=== PATIENT | male | born 1985 | race African-American/Black ===

== ENCOUNTER 2020-03-30 01:44 | Inpatient (IN) | payer OTHER ==
[2020-03-30] MEDS ORDERED: Acetaminophen 500 MG TAB ONE (02:25)
[2020-03-30 02:35] LABS: #Lymphocytes 0.4 thou/uL (1.20-3.40); #Monocytes 0.2 thou/uL (0.11-0.59); %Eosinophils 0.3 % (0.0-10.0); %Lymphocytes 16.9 % (21.0-51.0); %Monocytes 6.3 % (0.0-10.0); %Neutrophils 76.5 % (42.0-75.0); Mean Corpuscular HGB CONC 35.7 g/dL (32.0-36.0); Mean Corpuscular Hemoglobin 29.1 pg (27.0-31.0); Mean Corpuscular Volume 81.4 fL (78.0-98.0); Mean Platelet Volume 7.7 fL (7.4-10.4); Platelet Count 195 thou/uL (130-400); RBC Distribution Width 14.3 % (11.5-14.5); Red Blood Cell (RBC) Count 3.08 mill/uL (4.70-6.10); White Blood Cell (WBC) Count 2.6 thou/uL (4.8-10.8)
[2020-03-30 02:59] LABS: ALT (SGPT) 24 U/L (8-55); AST (SGOT) 29 U/L (5-34); Albumin 3.2 g/dL (3.5-5.0); Alkaline Phosphatase 38 U/L (40-110); Anion Gap 10 mmol/L (10-20); BUN (Urea Nitrogen) 8 mg/dL (8.9-20.6); Bilirubin, Total 0.6 mg/dL (0.2-1.2); Calc. Creatinine Clearance 0 mL/min (70-130); Calcium 8.7 mg/dL (7.8-10.44); Carbon Dioxide 24 mmol/L (22-29); Chloride 104 mmol/L (98-107); Estimated GFR-MDRD Greater than 90; Globulin 4.3 g/dL (2.4-3.5); Glucose 89 mg/dL (70-105); Lipase 28 U/L (8-78); Potassium 3.8 mmol/L (3.5-5.1); Protein, Total 7.5 g/dL (6.0-8.3); Sodium 134 mmol/L (136-145)
[2020-03-30] MEDS ORDERED: Ondansetron PF 4 MG/2 ML Vial IVP PRN ×2 (05:30→13:30)
[2020-03-30] MEDS ORDERED: Ondansetron ODT 4 MG TAB PO PRN ×2 (05:30→13:30)
[2020-03-30] MEDS ORDERED: HYDROcodone/Acetaminophen 5/325 mg Tablet PO PRN ×4 (05:30→13:30)
[2020-03-30] MEDS ORDERED: Acetaminophen 650 MG Suppository PR PRN ×2 (05:30→13:29)
[2020-03-30] MEDS ORDERED: Acetaminophen 325 MG TAB PO PRN ×2 (05:30→13:29)
--- NOTE | 2020-03-30 06:05 | PDOC.HHP ---
Hospitalist HPI - History of Present Illness abdominal pain History of Present Illness: Case of an 34y/o male [facility] inmate who comes to hospital due to abdominal pain. apparently patient was on his usual state of health until 3 months ago when he started with abdominal, general malaise and weakness. patient refers coughing and moving worsens pain. patient also refers anorexia weight loss and fatigue. pain varies in intensity from 2 -7 is epigastric non radiating. patient was evaluated with CT and showed dilated common bile duct despite normal values, also patient presents with leukopenia and anemia, has a family hx of lupus Hospitalist ROS - Review of Systems All other systems reviewed; all pertinent +/- noted in HPI/Subj Hospitalist History - Past Medical History Cardiac: reports: no pertinent history - Past Surgical History Past Surgical History: reports: Hernia Repair - Family History Other Family History: lupus - Social History Smoking Status: Former smoker Alcohol: reports: None Drugs: reports: none - Exam General Appearance: NAD, awake alert Eye: PERRL, anicteric sclera ENT: normocephalic atraumatic, no oropharyngeal lesions, moist mucosa Neck: supple, symmetric, no JVD Heart: RRR, no murmur, no gallops, no rubs Respiratory: CTAB, no rales, no ronchi Gastrointestinal: soft, non-tender, non-distended, normal bowel sounds Extremities: no cyanosis, no clubbing, no edema Skin: normal turgor, no lesions, no rashes Neurological: cranial nerve grossly intact, normal sensation to touch, no weakness, no focal deficits Musculoskeletal: normal tone, normal strength, no muscle wasting Psychiatric: normal affect, normal behavior, A&O x 3 Hospitalist Results - Labs Result Diagrams: 03/30/20 02:28 03/30/20 02:28 Lab results: WBC 2.6 thou/uL (4.8-10.8) L 03/30/20 02:28 Hgb 9.0 g/dL (14.0-18.0) L 03/30/20 02:28 Hct 25.1 % (42.0-52.0) L 03/30/20 02:28 MCV 81.4 fL (78.0-98.0) 03/30/20 02:28 Plt Count 195 thou/uL (130-400) 03/30/20 02:28 Neutrophils % 76.5 % (42.0-75.0) H 03/30/20 02:28 Sodium 134 mmol/L (136-145) L 03/30/20 02:28 Potassium 3.8 mmol/L (3.5-5.1) 03/30/20 02:28 Chloride 104 mmol/L (98-107) 03/30/20 02:28 Carbon Dioxide 24 mmol/L (22-29) 03/30/20 02:28 BUN 8 mg/dL (8.9-20.6) L 03/30/20 02:28 Creatinine 0.90 mg/dL (0.7-1.3) 03/30/20 02:28 Glucose 89 mg/dL (70-105) 03/30/20 02:28 Calcium 8.7 mg/dL (7.8-10.44) 03/30/20 02:28 Total Bilirubin 0.6 mg/dL (0.2-1.2) 03/30/20 02:28 AST 29 U/L (5-34) 03/30/20 02:28 ALT 24 U/L (8-55) 03/30/20 02:28 Alkaline Phosphatase 38 U/L (40-110) L 03/30/20 02:28 Serum Total Protein 7.5 g/dL (6.0-8.3) 03/30/20 02:28 Albumin 3.2 g/dL (3.5-5.0) L 03/30/20 02:28 Lipase 28 U/L (8-78) 03/30/20 02:28 Hospitalist H&P A/P - Problem (1) Dilated bile duct Code(s): K83.8 - OTHER SPECIFIED DISEASES OF BILIARY TRACT Status: Acute (2) Pancytopenia Code(s): D61.818 - OTHER PANCYTOPENIA Status: Acute - Plan Plan: 34 y/o male present with 3 months hx of abdominal pain, weight loss weakeness and malaise with a abd ct showing dilated bile duct with normal bmp including bili and a new onset of leukopenia and anemia - gi consulted - oncology consulted - iv hydration -pain management - iron panel
[2020-03-30 06:21] LABS: Iron 44 ug/dL (65-175); Iron Binding Capacity, Total 155 mcg/dL (261-462)
[2020-03-30] MEDS ORDERED: Famotidine 20 MG TAB PO SCH (09:00)
--- NOTE | 2020-03-30 21:33 | CON ---
DATE OF CONSULTATION: 03/30/2020 REASON FOR CONSULTATION: Dilated common bile duct. HISTORY OF PRESENT ILLNESS: Natalio Hinojosa is a 34-year-old man, who is a long-term retirement inmate. He was sent here from [facility] early this morning for further evaluation. He has a prior history of hernia repair last year as well as remote history of seizure. He takes only Abilify and phenytoin. He has no prior history of gastrointestinal illness. He says his mother of liver disease, but there is no family history of GI malignancy that he knows. He says for about the past 3 months, he has been experiencing unintentional weight loss of about 30 pounds along with fatigue and loss of appetite. He says his bowel habits have not really changed. There is no diarrhea, constipation, melena, or hematochezia. He has been having pain on the right side of the abdomen, really more quite lateral involving the right flank. This is not particularly related to mealtimes. He has felt progressively weak and fatigued. Upon presentation to [facility] last night, labs showed significant anemia with hemoglobin at 7.1. This is evidently new. It is normocytic. He received 2 units RBCs and this morning, hemoglobin is 9.0. He also has some mild leukopenia with WBC 2.6. LFTs and lipase were all normal. CRP normal and FOBT negative. He had ultrasound and then CT imaging, both of which showed nondistended gallbladder, normal appearing liver, common bile duct mildly dilated to [address] scan, it was felt the pancreatic duct was borderline at 3 mm, but though there was no apparent mass in the area, no other acute processes. Hematology has been consulted. Note, he has low iron and low TIBC. He is not currently having any discomfort. In fact, he says if he lies more on his left side, he does not feel any pain at all. REVIEW OF SYSTEMS: Full review of systems including constitutional, head, eyes, ears, nose, throat, GI, , cardiovascular, respiratory, musculoskeletal, neurologic systems is negative except as noted in the HPI. PAST MEDICAL HISTORY: Hernia repair in 2019, seizures, and prior tobacco abuse. ALLERGIES: NO KNOWN DRUG ALLERGIES. OUTPATIENT MEDICATIONS: 1. Abilify. 2. Phenytoin. SOCIAL HISTORY: He is an inmate. Former smoking. No alcohol or drug use. FAMILY HISTORY: Positive for lupus. He says his mother had liver disease. No known family history of GI illness or malignancy. PHYSICAL EXAMINATION: VITAL SIGNS: Temperature 98.7, pulse 86, blood pressure 118/71, and 100% oxygen saturation on room air. GENERAL: A 34-year-old man, lying in bed comfortably, appearing nontoxic, in no acute distress. MENTAL: He is alert and fully oriented. He is able to give a detailed history of his symptoms. SKIN: No jaundice. No rashes were palpable. EYES: No scleral icterus. Extraocular movements intact. ENT: Mucous membranes moist. No oral lesions. LYMPH: No submandibular or supraclavicular lymphadenopathy. THYROID: Nontender to palpation. HEART: Regular rate and rhythm. LUNGS: Clear to auscultation bilaterally. ABDOMEN: Bowel sounds are present. The abdomen is soft and nontender to palpation throughout. He does have some tenderness far laterally in the right upper quadrant as well as some in the right flank. There is no guarding or rebound tenderness. The abdomen is nondistended. EXTREMITIES: No peripheral edema. VESSELS: Radial pulses 2+ bilaterally. NEUROLOGIC: Cranial nerves 2 through 12 intact bilaterally. No focal deficits. LABORATORY STUDIES: Initial hemoglobin was 7.1, after 2 units of RBC transfusion, this is 9.0; MCV 81.4, WBC 2.6, platelets 195. Sodium 134, potassium 3.8, BUN 8, creatinine 0.90. LFTs all normal with total bilirubin 0.6, alkaline phosphatase 38, AST 29, ALT 24, albumin 3.2, lipase 28. CRP 1.0. FOBT negative. Iron low at 44, TIBC low at 155, 28% iron saturation. IMAGING STUDIES: Reviewed the report from outside abdominal ultrasound and CT scan. Abdominal ultrasound showed normal liver, common bile duct 7 mm, poor visualization of the gallbladder. CT of the abdomen and pelvis showed a common bile duct of 7 mm, pancreatic duct of 3 mm, no apparent mass in the area. No lymphadenopathy. Normal appearing liver, spleen, and pancreas otherwise. Cecum and appendix lie within the left lower quadrant. ASSESSMENT AND PLAN: 1. Anemia, normocytic. It is unclear exactly how acute this is, but from outside records, it appears this may be more of an acute anemia. Note, the iron studies are mixed so far, he has responded well to transfusion. Etiology is unknown. We will also obtain ferritin, vitamin B12, and folic acid levels. Trend hemoglobin and hematocrit. In the absence of overt bleeding, do still need to consider occult gastrointestinal bleeding lesion, particularly with the concomitant weight loss over the past few months. 2. Weight loss, unintentional. He has lost about 30 pounds over the past several months along with the anemia, this does raise concern for occult gastrointestinal bleeding lesion. EGD and colonoscopy are certainly warranted. The patient is currently being ruled out for COVID. We will have the patient on clear liquid diet tomorrow, and assuming COVID comes back negative, could potentially proceed with EGD and colonoscopy the following day. 3. Dilated common bile duct. This is quite mild on ultrasound and CT imaging showing a CBD of [address] also suggested pancreatic duct upper limits of normal at 3 mm, though no pancreatic mass. Particularly given the weight loss, I think further imaging is reasonable, so we will go ahead and order MRCP, though I note LFTs and lipase are normal, so this may all be insignificant. 4. Right flank pain. The patient's presentation was billed as epigastric and right upper quadrant pain, but he really denies this. He says it is more way lateral on the right side in the back and he feels that it might be positional. There is nothing else on CT imaging to suggest an etiology for this, could be musculoskeletal. We will follow along, with results of labs, an MRCP imaging, COVID testing, and again plan for EGD and colonoscopy at some point once COVID has come back negative. Job ID: [id number]
[2020-03-30] MEDS: Famotidine 20 MG TAB PO SCH (21:52)
[2020-03-30] MEDS: Aripiprazole 15 MG TAB PO SCH (21:53)
[2020-03-31 07:08] LABS: #Lymphocytes 0.4 thou/uL (1.20-3.40); #Monocytes 0.2 thou/uL (0.11-0.59); #Neutrophils 1.7 thou/uL (1.40-6.50); %Eosinophils 0.5 % (0.0-10.0); %Lymphocytes 16.5 % (21.0-51.0); %Monocytes 9.5 % (0.0-10.0); %Neutrophils 73.5 % (42.0-75.0); Hemoglobin 8.5 g/dL (14.0-18.0); Mean Corpuscular Hemoglobin 28.1 pg (27.0-31.0); Mean Corpuscular Volume 82.5 fL (78.0-98.0); Mean Platelet Volume 7.9 fL (7.4-10.4); Platelet Count 193 thou/uL (130-400); RBC Distribution Width 14.3 % (11.5-14.5); Red Blood Cell (RBC) Count 3.02 mill/uL (4.70-6.10); White Blood Cell (WBC) Count 2.2 thou/uL (4.8-10.8)
[2020-03-31 07:30] LABS: ALT (SGPT) 22 U/L (8-55); AST (SGOT) 25 U/L (5-34); Albumin 2.9 g/dL (3.5-5.0); Alkaline Phosphatase 37 U/L (40-110); Anion Gap 8 mmol/L (10-20); BUN (Urea Nitrogen) 11 mg/dL (8.9-20.6); Bilirubin, Total 0.6 mg/dL (0.2-1.2); Calc. Creatinine Clearance 0 mL/min (70-130); Calcium 8.4 mg/dL (7.8-10.44); Carbon Dioxide 25 mmol/L (22-29); Chloride 103 mmol/L (98-107); Estimated GFR-MDRD Greater than 90; Glucose 125 mg/dL (70-105); Potassium 3.7 mmol/L (3.5-5.1); Protein, Total 6.9 g/dL (6.0-8.3); Sodium 132 mmol/L (136-145)
[2020-03-31 07:54] LABS: Ferritin 909.97 ng/mL (22-322)
[2020-03-31] MEDS: Famotidine 20 MG TAB PO SCH ×4 (08:34→21:50)
[2020-03-31 10:14] VITALS: BMI 19.8
[2020-03-31 12:14] LABS: SARS-CoV-2 MS2 Positive; SARS-CoV-2 N Gene Negative; SARS-CoV-2 S Gene Negative; SARS-CoV-2 orf1ab Negative
[2020-03-31] MEDS ORDERED: Iopamidol-370 76% 500 ML 1 ML ONE (16:35)
--- NOTE | 2020-03-31 17:53 | PDOC.HOSPP ---
- Subjective Encounter Date: 03/31/20 Subjective: Patient reports that he has been losing weight over several months. He reports that since November he has had very poor appetite and food has not tasted the same for him. He also reports during that same timeframe that he has had fairly chronic headaches. He denies any specific abdominal pain. He does eat but reportedly eats less because of the loss of appetite and taste perversion. Says he was initially worried that it was COVID because of the taste change but he has been tested and was negative. - Objective Vital Signs & Weight: Vital Signs (12 hours) Temp Pulse Resp BP Pulse Ox 03/31/20 17:10 98.7 F 85 14 111/73 100 03/31/20 12:00 98.2 F 74 16 125/75 98 03/31/20 08:40 97.7 F 76 16 118/74 96 Weight Admit Weight 154 lb 3.2 oz Weight 154 lb 3.2 oz Result Diagrams: 03/31/20 06:35 03/31/20 06:35 Hospitalist ROS - Medication Medications: Active Medications Generic Name Dose Route Start Last Admin Trade Name Faustino PRN Reason Stop Dose Admin Aripiprazole 15 mg 03/30/20 21:00 03/30/20 21:53 Abilify PO 15 mg HS KAVON Administration Famotidine 20 mg 03/30/20 21:00 03/31/20 10:25 Pepcid PO Not Given BID KAVON Phenytoin Sodium 300 mg 03/30/20 21:00 03/30/20 21:52 Dilantin Er PO 300 mg HS KAVON Administration - Exam General Appearance: NAD, awake alert ENT: normocephalic atraumatic, no oropharyngeal lesions, moist mucosa Heart: RRR, no murmur, no gallops, no rubs, normal peripheral pulses Respiratory: CTAB, no wheezes, no rales, no ronchi, normal chest expansion, no tachypnea, normal percussion Gastrointestinal: soft, non-tender, non-distended, normal bowel sounds, no palpable masses, no hepatomegaly, no splenomegaly, no bruit Extremities: no cyanosis, no clubbing, no edema Skin: normal turgor Neurological: no focal deficits Musculoskeletal: normal tone Hosp A/P (1) Abdominal pain Code(s): R10.9 - UNSPECIFIED ABDOMINAL PAIN Status: Acute (2) Abnormal weight loss Code(s): R63.4 - ABNORMAL WEIGHT LOSS Status: Acute (3) Headache Code(s): R51 - HEADACHE Status: Acute (4) Taste perversion Code(s): R43.2 - PARAGEUSIA Status: Acute (5) Dilated bile duct Code(s): K83.8 - OTHER SPECIFIED DISEASES OF BILIARY TRACT Status: Acute (6) Pancytopenia Code(s): D61.818 - OTHER PANCYTOPENIA Status: Acute (7) Hyponatremia Code(s): E87.1 - HYPO-OSMOLALITY AND HYPONATREMIA Status: Acute - Plan Abdominal pain: No significant findings on CT. Patient reports now that the pain is mostly under his right pectoralis area. He had a slightly dilated biliary ducts. Given his weight loss symptoms ERCP is planned. Abnormal weight loss: Patient reports significant weight loss over the past several months. He does not seem to have specific malabsorptive symptoms. GI has been consulted. MRCP is pending. Patient was not kept n.p.o. for the test today. Therefore the MRCP will be done in the morning. Headache: In the setting of chronic headaches along with the weight loss MRI of the head is reasonable. GI is ordered that and I concur with that plan. Pancytopenia: Etiology is unclear. Hematology has been consulted. He has required transfusion. Will repeat his counts in the morning and check a reticulocyte count. Taste perversion: Vague symptom however in the setting of all of the other symptoms the MRI of the head is appropriate. Could be contributing to his weight loss as well. Hyponatremia: Mild. However in the setting of the other symptoms needs to be watched closely.
--- NOTE | 2020-03-31 18:03 | PRG ---
DATE OF SERVICE: 03/31/2020 SUBJECTIVE: The patient did not have the MRCP today as he ate. No acute symptoms today. His right sided flank pain is low-grade. The patient reports having a continuous throbbing headache ever since November. No nausea or vomiting. OBJECTIVE: VITAL SIGNS: Temperature is 98.2, blood pressure 125/75, pulse of 74. GENERAL: He is alert, conversant, does not appear in any distress. HEENT: Anicteric sclerae. NECK: Supple. No adenopathy. CV: Normal S1 and S2. Regular rate and rhythm. CHEST: Breath sounds. ABDOMEN: Soft, flat, nontender. No distention. No tympany. He has active bowel sounds. EXTREMITIES: No edema. LABORATORY DATA: WBCs 2.2, hemoglobin 8.5, and platelet count of 193. Electrolytes within normal range. Creatinine 0.97, BUN of 11. LFTs are normal. His B12 is 274. His folic acid is 12.2. Serum ferritin is 909, TIBC is 155, serum iron 44, and iron percent saturation is 28%. ASSESSMENT: 1. 30-pound unintentional weight loss with unrevealing abdominal CT and ultrasound. 2. Normocytic anemia without any evidence of true iron deficiency by blood tests. Serum folic acid and B12 are normal. Ferritin is elevated, but suspect could be an acute phase reactant. 3. Right flank pain of undetermined etiology. 4. Mild dilation of common duct to 7 mm and pancreatic duct to 3 mm on imaging study without any defined obstructive process. The etiology is unknown but likely of no clinical significance as his LFTs are normal. 5. Chronic headache since November. RECOMMENDATIONS: 1. MRCP has been rescheduled for tomorrow. We will add a brain MRI to evaluate his chronic headache. 2. If MRCP is then remarkable, we will proceed with EGD/colonoscopy in the context of severe weight loss, anemia, and right flank pain. 3. We will check a TB QuantiFERON. Job ID: [id number] [facility]
--- NOTE | 2020-03-31 18:48 | RAD ---
CHEST ONE VIEW: 03/31/20 HISTORY: Pain. COMPARISON: None. FINDINGS: Normal cardiac silhouette. The pulmonary vessels and hilum are normal. Blunting of the right costophr enic angle likely due to scar or atelectasis. Small effusion cannot be excluded. Elevation of the min or fissure on the right side suggesting right upper lobe atelectasis. Better interrogation with chest CT may be beneficial. IMPRESSION: Volume loss in the right upper lobe due to atelectasis. Better interrogation with chest CT may be nel eficial. POS: PPP
[2020-03-31 19:13] LABS: Reticulocyte Count 2.1 % (0.5-1.5)
[2020-03-31] MEDS ORDERED: Cyanocobalamin 1000 MCG/ML VIAL IM SCH (19:30)
--- NOTE | 2020-03-31 20:49 | CT ---
CT Chest W Con History: Abnormal chest x-ray Comparison: Radiograph same day Findings: Patchy pneumonia within the right upper lobe with air bronchograms and some peripheral and central necrosis. There is consolidation superior segment right lower lobe with small posterior central necrosis. Small right layering pleural effusion with some loculation. Small nodule within the posterior segment right lower lobe measuring 6 mm with central necrosis. The left upper lobe is a 1.6 cm nodule with some central necrosis. Small 1 cm patchy nodule in the le ft upper lobe anterior segment. The aortic contour is nonaneurysmal. No significant mediastinal adenopathy. Upper abdomen evaluation is limited. Impression: Findings of confluent right upper lobe pneumonia with air bronchograms along with small p eripheral foci of necrosis. There are also abnormal nodules in both upper and lower lobes of differing sizes of which contain small foci of necrosis. Differential includes opportunistic infectio n from immunocompromised state, and less likely septic emboli or metastatic disease. Bronchoscopic evaluation may be beneficial. Right layering pleural effusion is relatively small though does appear to be somewhat loculated appea mabel posteriorly suggesting chronicity from recurrent infections.
[2020-03-31] MEDS: Aripiprazole 15 MG TAB PO SCH (21:48)
[2020-04-01 07:16] LABS: Reticulocyte Count 2.2 % (0.5-1.5)
[2020-04-01 07:20] LABS: Hemoglobin 9.4 g/dL (14.0-18.0); Mean Corpuscular HGB CONC 34.4 g/dL (32.0-36.0); Mean Corpuscular Hemoglobin 28.3 pg (27.0-31.0); Mean Corpuscular Volume 82.3 fL (78.0-98.0); Mean Platelet Volume 7.7 fL (7.4-10.4); Platelet Count 197 thou/uL (130-400); RBC Distribution Width 14.5 % (11.5-14.5); Red Blood Cell (RBC) Count 3.34 mill/uL (4.70-6.10); White Blood Cell (WBC) Count 1.9 thou/uL (4.8-10.8)
[2020-04-01 07:46] LABS: Band 7 % (5-11); Lymphocytes 23 % (21-51); MDiff Complete? YES; Monocytes 8 % (0-10); Neutrophil 63 % (42-75); Platelet Morphology Comment Appears Adequate; Polychromasia SLIGHT = 2-3 cells (100X) (0-2/hpf)
--- NOTE | 2020-04-01 10:29 | MRI ---
MRI BRAIN WITH AND WITHOUT IV CONTRAST: HISTORY: Chronic headaches COMPARISON: None CORRELATION: None FINDINGS: No restricted diffusion is seen. No evidence of infarct, hemorrhage, mass, midline shift or abnormal extra-axial fluid collections is noted. No abnormal postcontrast enhancement is seen. The ventricular size is appropriate and the basilar cisterns are patent. No tonsillar herniation is seen. The visualized paranasal sinuses and mastoid air cells are well aerated. IMPRESSION: Normal exam
[2020-04-01] MEDS: Famotidine 20 MG TAB PO SCH (10:31)
--- NOTE | 2020-04-01 11:20 | MRI ---
MRI ABDOMEN WITHOUT IV CONTRAST: Date: 04/01/2020 HISTORY: Abnormal ultrasound and CT scan of 03/29/2020 from [facility]. FINDINGS: Correlation is made with the CT scan and gallbladder ultrasound of 03/29/2020 from [facility]. A small right pleural effusion is present. The liver, spleen, adrenal glands, and kidneys appear norm al. The common bile duct measures 8.0 mm in the pancreatic head and the pancreatic duct measures up t o 4.0 mm. The pancreas is otherwise unremarkable. The gallbladder appears normal. No cholelithiasis o r choledocholithiasis is seen. No free fluid or lymphadenopathy seen in the abdomen. The bone marrow signal is normal. IMPRESSION: 1. Small right pleural effusion. 2. No evidence of cholelithiasis or choledocholithiasis. 3. Mildly dilated common bile duct and pancreatic duct. Endoscopic ultrasound would be helpful. POS: MJ
--- NOTE | 2020-04-01 14:08 | CON ---
DATE OF CONSULTATION: HISTORY OF PRESENT ILLNESS: A 34-year-old gentleman from [facility], who has been there for almost 5 months. He says he presented with significant weight loss of 30 pounds, right upper quadrant abdominal pain, and abnormal blood count. He was found to have a dilated common bile duct and anemia. He then was seen by GI over here. X-ray was taken yesterday, which shows dense right upper lung infiltrates, looks like some volume loss, but CAT scan shows air bronchograms, loculated pleural effusion on the right side. Further questioning, he has previous history of substance abuse, tobacco abuse, not smoked for a period of time. He has started having some chest pain in November in the [facility] with some low-grade fever and a cough but there is no sputum production. He still got a cough, once again nonproductive. He denies any previous history of pneumonia, asthma, or TB. PAST MEDICAL HISTORY: Pertinent for longstanding history of seizure disorders, smoked in the past, drug use in the past. CHRONIC MEDICATIONS: Dilantin. PREVIOUS SURGERIES: Hernia repair. HOME MEDICATIONS: Apparently, include Abilify 15 and Dilantin 300, but he tells me that he is still having some kind of seizure activity, had one about a month ago. REVIEW OF SYSTEMS: Otherwise, 10-point negative. PHYSICAL EXAMINATION: VITAL SIGNS: Temperature 98, pulse 92, respirations 20, saturations on room air, and blood pressure 106/71. CHEST: Revealed decreased breath sounds, right lung. CARDIAC: Normal S1, S2. No gallops. ABDOMEN: No masses. LABORATORY DATA: White count 1.9, H and H 9 and 27, platelet count is normal. MRI of brain was negative. CT of chest is as noted. Chemistry profile shows sodium 132. Liver function was otherwise pertinent for albumin of 2.9. IMPRESSION: 1. Right upper lung pneumonia with loculated pleural effusion, appears to be parapneumonic. 2. Former substance, tobacco abuse. 3. Anemia, associated with leukopenia. 4. Coronavirus negative. 5. Awaiting results of HIV, additional serology. Pulmonary galvan, his lung findings are consistent with pneumonia with a loculated pleural effusion, though he clearly is afebrile, which I am surprised. I would await HIV results, empirically start him on some doxycycline. Continue workup for his leukopenia and anemia and significant weight loss. At this stage, since he is afebrile, I will treat with antibiotics, unless the effusion gets larger or it appears at that time, we will repeat a CT to see whether loculated effusion getting larger. He may require at that time decortication. We will follow. Job ID: [id number]
--- NOTE | 2020-04-01 15:29 | PDOC.HOSPP ---
- Subjective Encounter Date: 04/01/20 Subjective: Feels okay in general. Denies cough. Reports that he had previously had some cough but has not had any recently. He does admit to some night sweats on a fairly regular basis which she describes as drenching. - Objective Vital Signs & Weight: Vital Signs (12 hours) Temp Pulse Resp BP Pulse Ox 04/01/20 13:53 92 16 99 04/01/20 08:00 98.1 F 92 20 106/71 99 04/01/20 04:00 98.4 F 84 18 110/72 100 Weight Admit Weight 154 lb 3.2 oz Weight 154 lb 3.2 oz I&O: 03/31/20 04/01/20 04/02/20 06:59 06:59 06:59 Intake Total 1200 Balance 1200 Result Diagrams: 04/01/20 06:51 03/31/20 06:35 Hospitalist ROS - Medication Medications: Active Medications Generic Name Dose Route Start Last Admin Trade Name Freq PRN Reason Stop Dose Admin Albuterol/Ipratropium 3 ml 04/01/20 13:00 04/01/20 13:53 Duoneb NEB 3 ml [id number] KAVON Administration Aripiprazole 15 mg 03/30/20 21:00 03/31/20 21:48 Abilify PO 15 mg HS KAVON Administration Phenytoin Sodium 300 mg 03/30/20 21:00 03/31/20 21:48 Dilantin Er PO 300 mg HS KAVON Administration - Exam General Appearance: NAD, awake alert Heart: RRR, no murmur, no gallops, no rubs, normal peripheral pulses Respiratory: CTAB, no wheezes, no rales, no ronchi, normal chest expansion, no tachypnea, normal percussion Gastrointestinal: soft, non-tender, non-distended, normal bowel sounds, no palpable masses, no hepatomegaly, no splenomegaly, no bruit Extremities: no cyanosis, no clubbing, no edema Skin: normal turgor Musculoskeletal: normal tone, normal strength, no muscle wasting Psychiatric: normal affect, normal behavior, A&O x 3 Hosp A/P (1) Abdominal pain Code(s): R10.9 - UNSPECIFIED ABDOMINAL PAIN Status: Acute (2) Abnormal weight loss Code(s): R63.4 - ABNORMAL WEIGHT LOSS Status: Acute (3) Headache Code(s): R51 - HEADACHE Status: Acute (4) Taste perversion Code(s): R43.2 - PARAGEUSIA Status: Acute (5) Dilated bile duct Code(s): K83.8 - OTHER SPECIFIED DISEASES OF BILIARY TRACT Status: Acute (6) Pancytopenia Code(s): D61.818 - OTHER PANCYTOPENIA Status: Acute (7) Hyponatremia Code(s): E87.1 - HYPO-OSMOLALITY AND HYPONATREMIA Status: Acute (8) Abnormal CT scan, chest Code(s): R93.89 - ABNORMAL FINDINGS ON DX IMAGING OF OTH BODY STRUCTURES Status: Acute - Plan Abnormal CT chest: Patient had an abnormal chest x-ray showing significant opacity in the right upper lobe which was very well delineated. CT of the chest confirms what appears to be some type of infiltrate with some central necrosis in the right upper lobe with several satellite areas with a small area of opacity in evidence of mild central necrosis of these areas. There is also a posterior right loculated small effusion. Etiology is unclear. Concerning for infectious etiology. Discussed with pulmonology. He does not feel like the patient has TB but has some residual pneumonia. Recommended empiric doxycycline. Ordered sputum cultures. Does not not believe bronchoscopy is indicated. Also discussed with ID. Will consult him. In the interim keep him in TB isolation precautions. HIV is pending. Abdominal pain: Appears to be more related to a chest pain. Abnormal weight loss: Patient reports significant weight loss over the past several months. He does not seem to have specific malabsorptive symptoms. MRI of the abdomen is generally unremarkable. Headache: Negative MRI head. Pancytopenia: Reticulocyte count appears to be relatively low given the degree of anemia. Oncology is ordered some autoimmune studies. Taste perversion: Hyponatremia: Mild. However in the setting of the other symptoms needs to be watched closely.
[2020-04-01 16:16] LABS: ANA Symphony (Qualitative) Negative (Negative); ANA Symphony (Quantitative) 0.3 Ratio (< 0.7 Negative); CCP IgG Antibody 1.8 EliAU/mL (<7 Negative); EliA RAS New Method **** NEW METHOD ****; Rheumatoid Factor IgM Antibody 3.8 IU/mL (<3.5 Negative)
[2020-04-01] MEDS ORDERED: Magnevist 469MG/ML 20 ML VIAL ONE (16:41)
--- NOTE | 2020-04-01 21:00 | CON ---
DATE OF CONSULTATION: 04/01/2020 REASON FOR CONSULTATION: Weight loss, cough, and infiltrate right upper lobe, necrotizing features. HISTORY OF PRESENT ILLNESS: A 34-year-old, who is an inmate at [facility] and has a history of longstanding epilepsy since childhood, had been on phenobarbital for many years and then eventually transitioned to Dilantin when he was admitted to the [facility]. He has been there for many years now. It looks like he went in as a teenager and then over the past few months, he has noticed persistent coughing spells with purulent sputum production, weight loss of about 30 pounds. He was seen by a physician in the half-way system and they referred him for admission because they found a low white cell count. It did not appear that the patient himself had experienced any major symptomatic changes and that he was just steadily deteriorating. The patient has persistent headache, sometimes mild, sometimes more intense. He does not remember been without headaches for the past few months. He has no visual symptoms. No sore throat, odynophagia, or dysphagia and he is coughing still intermittently. No dyspnea. No chest pain. He did have some lower chest and upper abdominal pain at admission, but that has resolved. No genitourinary symptoms. No diarrhea. No joint symptoms. No skin disorder. PAST MEDICAL HISTORY: Epilepsy on phenobarbital for many years and then transition to Dilantin after admission to the [facility], he has been in half-way for many years now. PAST SURGICAL HISTORY: Includes hernia repair. SOCIAL HISTORY: Former smoker. He is a prisoner at [facility] for more than 10 years. ALLERGIES: NONE. MEDICATIONS: Dilantin. Other medication administered here in the hospital; 1. Tylenol. 2. [place]. 3. DuoNeb. 4. Abilify. 5. Vibramycin. 6. Zofran. 7. Protonix. 8. Dilantin. PHYSICAL EXAMINATION: VITAL SIGNS: T-max 98.7, blood pressure 106/71, pulse 92, respirations 16, and O2 saturation 99. GENERAL: Thin, but not cachectic. Appears in no distress. He is oriented. SKIN: Shows tattoos in the scalp area. No lymphadenopathy. HEENT: Ocular movements conjugate. Oral cavity normal. Numerous teeth in place, in fairly decent shape. NECK: Supple. No jugular vein distention. LUNGS: Symmetric air entry. HEART: S1 and S2. Regular rate. No S3 or S4. ABDOMEN: Soft, not distended or tender. No ascites. No bladder distention. No joint inflammatory activity noted. LABORATORY DATA: White cell count 2.6 and now 1.9, hemoglobin 9.4, MCV 81, platelets 195, 76% neutrophils, 400 lymphocytes, and retic count 2.1. Chemistry with a sodium 134 and creatinine 0.9. Liver profile normal. Albumin 3.2. He had an CALVIN submitted on 04/01, which showed positive apiz-sfaxjy-[id number] DNA, rheumatoid factor IgM positive. COVID was not detected. Sputum samples for AFB are pending at this time. He had a chest x-ray, which showed an area of infiltrate in the right upper lobe with some volume loss and chest CT showed confluent right upper lobe pneumonia with air bronchograms along small peripheral foci of necrosis, abnormal nodules in both upper and lower lobes different size with small foci of necrosis. Brain MRI was carried out and it showed normal exam. ASSESSMENT: 1. Longstanding epilepsy on phenobarbital and now on Dilantin for many years. 2. Persistent headaches. 3. Cough, chronic with sputum production. 4. Weight loss. 5. Leukopenia and anemia. 6. Positive autoimmune antibody panel with pwzf-oqrvoj-oilneyft DNA IgG titer of 86. DISCUSSION: Differential diagnosis includes a Dilantin associated hypersensitivity with induction of systemic lupus erythematosus with the clinical manifestations potentially secondary to end-organ damage from the autoimmune process versus an opportunistic infection such as mycobacterium tuberculosis or fungal infection including possibility of histoplasma Cryptococcus neoformans and so on. Aspiration pneumonia less likely in view of the chronicity of symptoms. His last HIV test reportedly was 9 years ago and another one has been submitted at this time. Malignancy appears to be less likely. At this point, I would recommend discontinuation of Dilantin, transitioning to Keppra. Await on the samples. We will submit opportunistic workup from urine serum. Wait on the HIV serology results and Mycobacterium tuberculosis sputum tests as well as QuantiFERON. Job ID: [id number] [facility]
[2020-04-01] MEDS: Doxycycline 100 MG CAP PO SCH (21:39)
[2020-04-01] MEDS: Aripiprazole 15 MG TAB PO SCH (21:46)
--- NOTE | 2020-04-01 22:37 | PRG ---
DATE OF SERVICE: 04/01/2020 SUBJECTIVE: Mr. Hinojosa is resting in bed comfortably. His temperature is 98. He reports his right upper quadrant pain is about the same as it has been. It is vague. It is worse when he takes a deep breath. He has no pain with eating or drinking. He has no melena, hematochezia, or hematemesis. PHYSICAL EXAMINATION: VITAL SIGNS: Temperature 98, pulse 78, blood pressure 106/71. LUNGS: Clear. HEART: Regular without clicks, rubs or murmurs. ABDOMEN: Soft, nontender. LABORATORY DATA: White count 1.9, hemoglobin 9.4, MCV 82, platelet count 197. He has 23% lymphocytes, 7% bands, 62% neutrophils. He has a retic count of 2.2 and immature fraction of 0.36. He has a sodium of 132, potassium 3.7, BUN and creatinine of 11 and 0.9, sugar is 125, calcium is 8.4. Iron was low at 44, TIBC low at 155, ferritin high at 909, saturation 28%. AST 25, ALT 22, alkaline phosphatase 37, which was low. LDH 275, which is high. Albumin 2.9, total protein 6.9, globulin gap is 4, folate 12, B12 274. positive, CALVIN screen is positive. Double-stranded DNA is positive. HIV is pending. QuantiFERON is pending. Brain MRI was normal. An MRCP was normal except for slightly prominent common bile duct and pancreatic duct and a slightly prominent liver and a right effusion. A chest CAT scan performed after a chest x-ray shows a confluent right upper lobe pneumonia with air bronchograms, more peripheral foci of necrosis, abnormal lymph nodes in both upper and lower lobes with foci of necrosis, right pleural effusion. ASSESSMENT: I think the patient's symptoms can be attributed to the chronic process in his chest. I agree with Dr. Mosher's recommendation. There is no need for an endoscopic ultrasound in this patient or any further abdominal workup at this time. His anemia is related to anemia of chronic disease or chronic inflammation as evidenced by his iron studies. We will follow from a distance at this time. Thank you very much for including us in this patient's evaluation. Job ID: [id number]
--- NOTE | 2020-04-02 02:14 | CON ---
DATE OF CONSULTATION: HISTORY OF PRESENT ILLNESS: This is a year 34 years old male who was in senior living in [place]. He admitted with CP. He was admitted with complaints of cough, malaise, weakness, abdominal pain and weight loss of approximately 30 pounds. At the time of admission, he was found to have WBC of 2600 with hemoglobin of 9 g and platelet count of 195,000. Differential showing 76.5% neutrophils. Hematology consultation was called for evaluation of anemia and leukopenia. There is no history of fever and the patient has been afebrile since admission. Chest x-ray showed volume loss in the right upper lobe. CT scan of the chest showed patchy infiltrate in the right upper lobe with air bronchogram with peripheral and central necrosis, consolidation in the superior segment of the right lower lobe with central necrosis was also reported. There was a small right pleural effusion and 6 mm nodule in the right lower lobe and 1.6 cm nodule in the left upper lobe. The patient has been evaluated by Dr. Mosher and Dr. Oliva. QuantiFERON gold test has been ordered. CBC today showed WBC of 1900 with hemoglobin of 9.4, and platelet count of 197,000. Differential showed 63% neutrophils, 7 bands, 23 lymphocytes. Retic count was 2.1%. CALVIN is positive and double-stranded DNA is high at 86, normal being less than 10. Chemistry profile is remarkable for albumin of 2.9, globulin 4, calcium 8.4, creatinine 0.97. Ferritin is 909, B12 274 and folic acid level is normal at 12.2. COVID 19 PCR was negative. HIV is also pending. ASSESSMENT AND RECOMMENDATION: The patient's primary problem is pulmonary in nature. studies are pending. Leukopenia and thrombocytopenia could be related to underlying infection such as tuberculosis or HIV. Lupus can also cause anemia and leukopenia. For now, we need to wait for complete pulmonary workup and results of HIV testing. Rheumatology consult will also be helpful, because of positive CALVIN, which could potentially be also related to Dilantin, which this patient has been taking. Thanks very much for allowing me to participate in this patient's care. I will follow him along with you. Job ID: [id number]
[2020-04-02 06:27] LABS: HIV (1/2) Antibody/Antigen Non-Reactive (NonReactive); HIV 1/2 INDEX 0.14 S/CO (<1.00)
[2020-04-02] MEDS: Doxycycline 100 MG CAP PO SCH ×2 (09:24→21:13)
--- NOTE | 2020-04-02 10:21 | PRG ---
DATE OF SERVICE: 04/02/2020 SUBJECTIVE: A 34-year-old gentleman. OBJECTIVE: VITAL SIGNS: Temperature 98, pulse 85, respiratory rate 20, and saturation 100% on room air, blood pressure 99/60. GENERAL: He is still having vague right chest pain. CARDIAC: Normal S1 and S2. No gallops. ABDOMEN: No masses. ASSESSMENT AND PLAN: Leukopenia, right upper lung infiltrate with loculated pleural effusion, etiology unclear, probably community-acquired pneumonia. Awaiting sputum results. So far, the Gram stain showed many, many WBCs. Cultures are negative. Continue empiric doxycycline. Serial labs. We will follow. Job ID: [id number]
--- NOTE | 2020-04-02 12:18 | PDOC.HOSPP ---
- Subjective Encounter Date: 04/02/20 Subjective: Patient reports feeling okay. Has no significant change in his overall symptoms. In discussing the situation with the patient he does report that his sister, his brother and his daughter all have lupus. His daughter is only 16 years old and he says she has been having problems since she was 5. He reports numbness in her hands and some sensitivity to the sun. - Objective Vital Signs & Weight: Vital Signs (12 hours) Temp Pulse Resp BP Pulse Ox 04/02/20 08:00 98.7 F 85 20 99/60 100 04/02/20 07:14 83 12 04/02/20 04:00 98.2 F 88 16 102/82 98 04/02/20 01:42 78 16 04/02/20 00:30 98.3 F 90 18 138/76 96 Weight Admit Weight 154 lb 3.2 oz Weight 154 lb 3.2 oz I&O: 04/01/20 04/02/20 04/03/20 06:59 06:59 06:59 Intake Total 1200 Balance 1200 Result Diagrams: 04/01/20 06:51 03/31/20 06:35 Hospitalist ROS - Medication Medications: Active Medications Generic Name Dose Route Start Last Admin Trade Name Freq PRN Reason Stop Dose Admin Albuterol/Ipratropium 3 ml 04/01/20 13:00 04/02/20 07:14 Duoneb NEB 3 ml [id number] KAVON Administration Aripiprazole 15 mg 03/30/20 21:00 04/01/20 21:46 Abilify PO Not Given HS KAVON Doxycycline Hyclate 100 mg 04/01/20 21:00 04/02/20 09:24 Vibramycin PO 100 mg BID KAVON Administration Pantoprazole Sodium 40 mg 04/02/20 09:00 04/02/20 09:25 Protonix PO 40 mg DAILY KAVON Administration Phenytoin Sodium 300 mg 03/30/20 21:00 04/01/20 21:39 Dilantin Er PO 300 mg HS KAVON Administration Sodium Chloride 10 ml 04/01/20 21:00 04/02/20 09:25 Flush - Normal Saline IVF 10 ml Q12HR KAVON Administration - Exam General Appearance: NAD, awake alert Heart: RRR, no murmur, no gallops, no rubs, normal peripheral pulses Respiratory: CTAB, no wheezes, no rales, no ronchi, normal chest expansion, no tachypnea, normal percussion Gastrointestinal: soft, non-tender, non-distended, normal bowel sounds, no palpable masses, no hepatomegaly, no splenomegaly, no bruit Extremities: no cyanosis, no clubbing, no edema Skin: normal turgor, no lesions, no rashes Musculoskeletal: normal tone Psychiatric: normal affect, normal behavior, A&O x 3 Hosp A/P (1) Abdominal pain Code(s): R10.9 - UNSPECIFIED ABDOMINAL PAIN Status: Acute (2) Abnormal weight loss Code(s): R63.4 - ABNORMAL WEIGHT LOSS Status: Acute (3) Headache Code(s): R51 - HEADACHE Status: Acute (4) Taste perversion Code(s): R43.2 - PARAGEUSIA Status: Acute (5) Dilated bile duct Code(s): K83.8 - OTHER SPECIFIED DISEASES OF BILIARY TRACT Status: Acute (6) Pancytopenia Code(s): D61.818 - OTHER PANCYTOPENIA Status: Acute (7) Hyponatremia Code(s): E87.1 - HYPO-OSMOLALITY AND HYPONATREMIA Status: Acute (8) Abnormal CT scan, chest Code(s): R93.89 - ABNORMAL FINDINGS ON DX IMAGING OF OTH BODY STRUCTURES Status: Acute - Plan Abnormal CT chest: Patient had an abnormal chest x-ray showing significant opacity in the right upper lobe which was very well delineated. CT of the chest confirms what appears to be some type of infiltrate with some central necrosis in the right upper lobe with several satellite areas with a small area of opacity in evidence of mild central necrosis of these areas. There is also a posterior right loculated small effusion. Etiology is unclear. Concerning for infectious etiology. Continuing isolation and awaiting sputum cultures, QuantiFERON. Cryptococcal antigen and HIV are negative. He is on empiric doxycycline for possible community-acquired pneumonia. Abdominal pain: Appears to be more related to a chest pain. Abnormal weight loss: Patient reports significant weight loss over the past several months. He does not seem to have specific malabsorptive symptoms. MRI of the abdomen is generally unremarkable. Some concern the patient may have a Dilantin induced lupus syndrome. However the patient appears to have been on Dilantin for a fairly long period of time. Is not impossible that he has just baseline lupus. According to him he has a very strong family history of it. Headache: Negative MRI head. Pancytopenia: Reticulocyte count appears to be relatively low given the degree of anemia. Oncology is ordered some autoimmune studies. Taste perversion: Hyponatremia: Mild. However in the setting of the other symptoms needs to be watched closely.
--- NOTE | 2020-04-02 12:45 | CON ---
NEUROLOGY CONSULTATION DATE OF CONSULTATION: 04/02/2020 REASON FOR CONSULTATION: Dilantin-induced SLE. HISTORY OF PRESENT ILLNESS: Mr. Hinojosa is a 34-year-old male, with history of epilepsy, who is also an inmate at [facility], consulted for lupus-like symptoms. The patient has been seen by several consultants and there is a concern that he has long-standing history of epilepsy as a child and has been on phenobarbital for the last several years. He was changed to Dilantin when he was admitted to [facility] and now having symptoms of weight loss, cough, and lupus-like symptoms. He does have family history of lupus in the brother, daughter and sister has lupus. He was seen by the Infectious Disease and there is a concern that it may be secondary to Dilantin-induced SLE like syndrome. Neurology was consulted for further evaluation. The patient reports cough, 30-pound weight loss, generalized malaise, weakness, headaches, but denies focal weakness, focal paresthesias, chest pain, abdominal pain, loss of vision, or loss of consciousness or abnormal involuntary movements associated with the current illness. He does have infiltrate in the right upper lobe with necrotizing features. PAST MEDICAL HISTORY: Epilepsy, initially on phenobarbital, and currently on Dilantin. PAST SURGICAL HISTORY: Hernia repair. SOCIAL HISTORY: He smokes. Denies illegal drug use. ALLERGIES: NO KNOWN DRUG ALLERGIES. FAMILY HISTORY: Significant for lupus. - Objective Vital Signs & Weight: Vital Signs (12 hours) Temp Pulse Resp BP Pulse Ox 04/02/20 08:00 98.7 F 85 20 99/60 100 04/02/20 07:14 83 12 04/02/20 04:00 98.2 F 88 16 102/82 98 04/02/20 01:42 78 16 04/02/20 00:30 98.3 F 90 18 138/76 96 Weight Admit Weight 154 lb 3.2 oz Weight 154 lb 3.2 oz I&O: 04/01/20 04/02/20 04/03/20 06:59 06:59 06:59 Intake Total 1200 Balance 1200 Active Medications Generic Name Dose Route Start Last Admin Trade Name Freq PRN Reason Stop Dose Admin Albuterol/Ipratropium 3 ml 04/01/20 13:00 04/02/20 07:14 Duoneb NEB 3 ml [id number] KAVON Administration Aripiprazole 15 mg 06/30/20 21:00 04/01/20 21:46 Abilify PO Not Given HS KAVON Doxycycline Hyclate 100 mg 04/01/20 21:00 04/02/20 09:24 Vibramycin PO 100 mg BID KAVON Administration Pantoprazole Sodium 40 mg 04/02/20 09:00 04/02/20 09:25 Protonix PO 40 mg DAILY KAVON Administration Phenytoin Sodium 300 mg 03/30/20 21:00 04/01/20 21:39 Dilantin Er PO 300 mg HS KAVON Administration Sodium Chloride 10 ml 04/01/20 21:00 04/02/20 09:25 Flush - Normal Saline IVF 10 ml Q12HR KAVON Administration PHYSICAL EXAMINATION: General Appearance: NAD, awake alert Heart: RRR, no murmur, no gallops, no rubs, normal peripheral pulses Respiratory: CTAB, no wheezes, no rales, no ronchi, normal chest expansion, no tachypnea, normal percussion Gastrointestinal: soft, non-tender, non-distended, normal bowel sounds, no palpable masses, no hepatomegaly, no splenomegaly, no bruit Extremities: no cyanosis, no clubbing, no edema Skin: normal turgor, no lesions, no rashes Musculoskeletal: normal tone Psychiatric: normal affect, normal behavior, A&O x 3 Neurologic: Mental status, the patient is alert and oriented to person, place , and time. Motor, muscle tone and bulk are normal. Moving all 4 extremities equally and symmetrically. Cranial nerves 2 through 12 are intact. Cerebellar, finger-nose testing intact. Sensory intact. Gait deferred due to the patient's safety reason. LABORATORY DATA: I reviewed the labs, which were significant for positive double-stranded DNA, rheumatoid factor, IgM positive. WBC 2.6 thou/uL (4.8-10.8) L 03/30/20 02:28 Hgb 9.0 g/dL (14.0-18.0) L 03/30/20 02:28 Hct 25.1 % (42.0-52.0) L 03/30/20 02:28 MCV 81.4 fL (78.0-98.0) 03/30/20 02:28 Plt Count 195 thou/uL (130-400) 03/30/20 02:28 Neutrophils % 76.5 % (42.0-75.0) H 03/30/20 02:28 Sodium 134 mmol/L (136-145) L 03/30/20 02:28 Potassium 3.8 mmol/L (3.5-5.1) 03/30/20 02:28 Chloride 104 mmol/L (98-107) 03/30/20 02:28 Carbon Dioxide 24 mmol/L (22-29) 03/30/20 02:28 BUN 8 mg/dL (8.9-20.6) L 03/30/20 02:28 Creatinine 0.90 mg/dL (0.7-1.3) 03/30/20 02:28 Glucose 89 mg/dL (70-105) 03/30/20 02:28 Calcium 8.7 mg/dL (7.8-10.44) 03/30/20 02:28 Total Bilirubin 0.6 mg/dL (0.2-1.2) 03/30/20 02:28 AST 29 U/L (5-34) 03/30/20 02:28 ALT 24 U/L (8-55) 03/30/20 02:28 Alkaline Phosphatase 38 U/L (40-110) L 03/30/20 02:28 Serum Total Protein 7.5 g/dL (6.0-8.3) 03/30/20 02:28 Albumin 3.2 g/dL (3.5-5.0) L 03/30/20 02:28 Lipase 28 U/L (8-78) 03/30/20 02:28 DIAGNOSTIC DATA: Chest CT showed right upper lobe pneumonia. Brain MRI reviewed, which was negative for acute intracranial pathology. ASSESSMENT AND PLAN: Mr. 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 Usually, the symptoms are of Dilantin toxicity and these symptoms occur during the first few months of initiation of Dilantin; however, given his history of Dilantin-induced systemic lupus erythematosus like symptoms cannot be completely ruled out unless we discontinue the agent. Discontinue Dilantin now and load with Keppra 1 g IV now and then start him on 500 mg twice daily. Observe seizure precautions. Neuro checks every 4 hours. Continue medical management of other issues per primary team. We will continue to follow. Plan discussed with the patient and the primary attending Dr. Antony. Thank you for the consult. Job ID: [id number] [facility]
--- NOTE | 2020-04-02 19:57 | PRG ---
DATE OF SERVICE: 04/02/2020 The patient was feeling about the same. He did not have CBC today. I have ordered repeat CBC for tomorrow. Consultation from Dr. Mullen was noted. His anemia and leukopenia could be from the infectious process. Angioplasty is another possibility. For now, he should have serial CBC and if no explanation is found, he might be a candidate for bone marrow sometimes next week. Job ID: [id number]
[2020-04-03] MEDS: Aripiprazole 15 MG TAB PO SCH ×2 (00:53→20:36)
[2020-04-03 06:31] LABS: #Lymphocytes 0.4 thou/uL (1.20-3.40); #Monocytes 0.2 thou/uL (0.11-0.59); #Neutrophils 2.2 thou/uL (1.40-6.50); %Eosinophils 0.6 % (0.0-10.0); %Lymphocytes 15.5 % (21.0-51.0); %Monocytes 7.2 % (0.0-10.0); %Neutrophils 76.7 % (42.0-75.0); Hemoglobin 8.4 g/dL (14.0-18.0); Mean Corpuscular HGB CONC 34.9 g/dL (32.0-36.0); Mean Corpuscular Hemoglobin 28.8 pg (27.0-31.0); Mean Corpuscular Volume 82.4 fL (78.0-98.0); Mean Platelet Volume 7.5 fL (7.4-10.4); Platelet Count 192 thou/uL (130-400); RBC Distribution Width 14.5 % (11.5-14.5); Red Blood Cell (RBC) Count 2.93 mill/uL (4.70-6.10); White Blood Cell (WBC) Count 2.8 thou/uL (4.8-10.8)
[2020-04-03] MEDS: Doxycycline 100 MG CAP PO SCH ×2 (08:55→20:36)
--- NOTE | 2020-04-03 14:55 | PDOC.HOSPP ---
- Subjective Encounter Date: 04/03/20 Subjective: Patient is doing about the same. Has no new complaints. - Objective Vital Signs & Weight: Vital Signs (12 hours) Temp Pulse Resp BP Pulse Ox 04/03/20 12:21 98.8 F 78 18 115/63 94 L 04/03/20 08:26 99.0 F 84 18 109/66 100 04/03/20 07:54 82 12 100 Weight Admit Weight 154 lb 3.2 oz Weight 154 lb 3.2 oz Result Diagrams: 04/03/20 06:06 03/31/20 06:35 Hospitalist ROS - Medication Medications: Active Medications Generic Name Dose Route Start Last Admin Trade Name Freq PRN Reason Stop Dose Admin Hydrocodone Bitart/Acetaminophen 1 tab 03/30/20 13:30 04/03/20 09:07 [place] 5/325 PO 1 tab Q4H PRN Administration Moderate Pain (4-6) Albuterol/Ipratropium 3 ml 04/01/20 13:00 04/03/20 07:54 Duoneb NEB 3 ml [id number] KAVON Administration Aripiprazole 15 mg 03/30/20 21:00 04/03/20 00:53 Abilify PO Not Given HS KAVON Doxycycline Hyclate 100 mg 04/01/20 21:00 04/03/20 08:55 Vibramycin PO 100 mg BID KAVON Administration Pantoprazole Sodium 40 mg 04/02/20 09:00 04/03/20 08:55 Protonix PO 40 mg DAILY KAVON Administration Phenytoin Sodium 300 mg 03/30/20 21:00 04/03/20 00:53 Dilantin Er PO Not Given HS KAVON Sodium Chloride 10 ml 04/01/20 21:00 04/03/20 08:56 Flush - Normal Saline IVF 10 ml Q12HR KAVON Administration - Exam General Appearance: NAD, awake alert Heart: RRR, no murmur, no gallops, no rubs, normal peripheral pulses Respiratory: CTAB, no wheezes, no rales, no ronchi, normal chest expansion, no tachypnea, normal percussion Gastrointestinal: soft, non-tender, non-distended, normal bowel sounds, no palpable masses, no hepatomegaly, no splenomegaly, no bruit Extremities: no cyanosis, no clubbing, no edema Skin: normal turgor, no lesions, no rashes Neurological: no focal deficits Musculoskeletal: normal tone, normal strength, no muscle wasting Psychiatric: normal affect, normal behavior, A&O x 3 Hosp A/P (1) Abdominal pain Code(s): R10.9 - UNSPECIFIED ABDOMINAL PAIN Status: Acute (2) Abnormal weight loss Code(s): R63.4 - ABNORMAL WEIGHT LOSS Status: Acute (3) Headache Code(s): R51 - HEADACHE Status: Acute (4) Taste perversion Code(s): R43.2 - PARAGEUSIA Status: Acute (5) Dilated bile duct Code(s): K83.8 - OTHER SPECIFIED DISEASES OF BILIARY TRACT Status: Acute (6) Pancytopenia Code(s): D61.818 - OTHER PANCYTOPENIA Status: Acute (7) Hyponatremia Code(s): E87.1 - HYPO-OSMOLALITY AND HYPONATREMIA Status: Acute (8) Abnormal CT scan, chest Code(s): R93.89 - ABNORMAL FINDINGS ON DX IMAGING OF OTH BODY STRUCTURES Status: Acute (9) Pneumonia Code(s): J18.9 - PNEUMONIA, UNSPECIFIED ORGANISM Status: Acute (10) SLE (systemic lupus erythematosus) Code(s): M32.9 - SYSTEMIC LUPUS ERYTHEMATOSUS, UNSPECIFIED Status: Acute - Plan Abnormal CT chest: Patient had an abnormal chest x-ray showing significant opacity in the right upper lobe which was very well delineated. CT of the chest confirms what appears to be some type of infiltrate with some central necrosis in the right upper lobe with several satellite areas with a small area of opacity in evidence of mild central necrosis of these areas. There is also a posterior right loculated small effusion. Etiology is unclear. Concerning for infectious etiology. Continuing isolation and awaiting sputum cultures, QuantiFERON. Cryptococcal antigen and HIV are negative. He is on empiric doxycycline for possible community-acquired pneumonia. Abdominal pain: Appears to be more related to a chest pain. Abnormal weight loss: Patient reports significant weight loss over the past several months. He does not seem to have specific malabsorptive symptoms. MRI of the abdomen is generally unremarkable. Some concern the patient may have a Dilantin induced lupus syndrome. However the patient appears to have been on Dilantin for a fairly long period of time. Is not impossible that he has just baseline lupus. According to him he has a very strong family history of it. Headache: Negative MRI head. Pancytopenia: Reticulocyte count appears to be relatively low given the degree of anemia. Oncology is ordered some autoimmune studies. Taste perversion: Hyponatremia: Mild. However in the setting of the other symptoms needs to be watched closely. Systemic lupus erythematosus: This could be induced from Dilantin or negative. The patient reports a strong family history of systemic lupus erythematosus in a couple of siblings and a daughter. He has been on the Dilantin for a long while and unlikely that it would induce this syndrome this late. Certainly could account for his pancytopenia. Counts appear to be generally stable at this point. He will likely need follow-up at [facility]. Disposition: This point the patient appears to be stable. Discussed with pulmonology again today. They feel it is unlikely that the patient has TB and recommend removing isolation. He will need ongoing p.o. antibiotics and will need follow-up at [facility]. Presently there does not appear to be a strong reason for the patient to need to remain hospitalized. Will make the transfer center aware that the patient can return for outpatient follow-up.
--- NOTE | 2020-04-03 17:20 | PRG ---
DATE OF SERVICE: 04/03/2020 SUBJECTIVE: Still having quite intense pleuritic pain in the right lower anterior chest area. No headaches. No dyspnea. No abdominal pain or diarrhea. No genitourinary symptoms. OBJECTIVE: VITAL SIGNS: His T-max 99, blood pressure 115/63, pulse 78, respirations 18, and O2 saturations were 94. HEENT: Ocular movements are conjugate. LUNGS: With diminished breath sounds in right lung lower segments. HEART: S1 and S2, regular rate. ABDOMEN: Soft and not distended EXTREMITIES: Normal. LABORATORY DATA: White cell count 2.8, hemoglobin 8.4, platelets 192, and neutrophils 76%. LDH 275 and albumin 2.9. HIV and COVID negative. Cryptococcus antigen negative. Do not have results of QuantiFERON. Neither have any sputums for AFB completed yet, although I do not see any order for sputum for AFB submitted. The patient has been switched to Keppra at this moment. He is on doxycycline. Job ID: [id number] [facility]
--- NOTE | 2020-04-03 20:19 | PRG ---
DATE OF SERVICE: 04/03/2020 SUBJECTIVE: Natalio Hinojosa had no new complaints. OBJECTIVE: GENERAL: He is afebrile. He is in no distress. LUNGS: He had clear lung peña on exam. HEART: Regular rhythm. ABDOMEN: Soft. LABORATORY DATA: His COVID and his HIV were negative. I have reviewed his chest CT. He has air bronchograms in alveolar infiltrate in his right upper lobe which most likely is a bacterial process. It is extremely unlikely that this is tuberculosis. In my opinion, he is stable to go back to his unit. He can have a followup CT in 6 to 8 weeks in . It would be extremely unusual for him to be afebrile and have active pulmonary tuberculosis at his age. His peripheral blood abnormalities can also be followed up in the [facility] in the [facility]. There is no reason to keep him in the hospital for this. I certainly would not recommend a bone marrow biopsy outside of the [facility] giving that any treatment that would be entertained would be based on what the [facility] dictate. I would refer him back down there for that. I discussed this with the hospitalist. Job ID: [id number]
--- NOTE | 2020-04-04 01:59 | PRG ---
DATE OF SERVICE: 04/03/2020 SUBJECTIVE: The patient feels about the same. OBJECTIVE: VITAL SIGNS: He remains afebrile with temperature 98.2, pulse 98, respirations 18, and blood pressure 103/64. LABORATORY DATA: CBC today showed WBC of 2800, hemoglobin of 8.4, and platelet count of 192,000. ASSESSMENT AND PLAN: The patient's leukopenia seems to be improving. For now, we will monitor him with serial CBCs and decision on bone marrow will be made sometimes next week. If there is no improvement of WBC and hemoglobin. Anemia and leukopenia could still be from pulmonary infection and possibly lupus. Job ID: [id number]
[2020-04-04 06:25] LABS: Anion Gap 9 mmol/L (10-20); BUN (Urea Nitrogen) 8 mg/dL (8.9-20.6); Calc. Creatinine Clearance 119 mL/min (70-130); Calcium 8.9 mg/dL (7.8-10.44); Carbon Dioxide 27 mmol/L (22-29); Chloride 104 mmol/L (98-107); Estimated GFR-MDRD Greater than 90; Glucose 88 mg/dL (70-105); Potassium 4.1 mmol/L (3.5-5.1); Sodium 136 mmol/L (136-145)
[2020-04-04] MEDS: Doxycycline 100 MG CAP PO SCH ×2 (08:37→20:35)
[2020-04-04] MEDS: levETIRAcetam In NaCl (Iso-Os) 1,000 MG in Premix Bag 1 BAG IVPB SCH ×2 (12:52→13:18)
--- NOTE | 2020-04-04 13:16 | PDOC.HOSPP ---
- Subjective Encounter Date: 04/04/20 Subjective: Feels okay. No new complaints. - Objective Vital Signs & Weight: Vital Signs (12 hours) Temp Pulse Resp BP Pulse Ox 04/04/20 08:44 97 04/04/20 07:18 98.8 F 95 18 115/70 97 04/04/20 06:44 99 16 100 Weight Admit Weight 154 lb 3.2 oz Weight 154 lb 3.2 oz Result Diagrams: 04/03/20 06:06 04/04/20 05:46 Hospitalist ROS - Medication Medications: Active Medications Generic Name Dose Route Start Last Admin Trade Name Freq PRN Reason Stop Dose Admin Hydrocodone Bitart/Acetaminophen 1 tab 03/30/20 13:30 04/03/20 09:07 [place] 5/325 PO 1 tab Q4H PRN Administration Moderate Pain (4-6) Albuterol/Ipratropium 3 ml 04/01/20 13:00 04/04/20 11:52 Duoneb NEB 3 ml [id number] KAVON Administration Aripiprazole 15 mg 03/30/20 21:00 04/03/20 20:36 Abilify PO 15 mg HS KAVON Administration Doxycycline Hyclate 100 mg 04/01/20 21:00 04/04/20 08:37 Vibramycin PO 100 mg BID KAVON Administration Pantoprazole Sodium 40 mg 04/02/20 09:00 04/04/20 08:37 Protonix PO 40 mg DAILY KAVON Administration Sodium Chloride 10 ml 04/01/20 21:00 04/04/20 08:39 Flush - Normal Saline IVF 10 ml Q12HR KAVON Administration Sodium Chloride 10 ml 04/01/20 11:15 04/04/20 12:55 Flush - Normal Saline IVF 10 ml PRN PRN Administration Saline Flush - Exam General Appearance: NAD, awake alert Heart: RRR, no murmur, no gallops, no rubs, normal peripheral pulses Respiratory: CTAB, no wheezes, no rales, no ronchi, normal chest expansion, no tachypnea, normal percussion Gastrointestinal: soft, non-tender, non-distended, normal bowel sounds, no palpable masses, no hepatomegaly, no splenomegaly, no bruit Extremities: no cyanosis, no clubbing, no edema Neurological: no focal deficits Musculoskeletal: normal tone, normal strength, no muscle wasting Hosp A/P (1) Abdominal pain Code(s): R10.9 - UNSPECIFIED ABDOMINAL PAIN Status: Acute (2) Abnormal weight loss Code(s): R63.4 - ABNORMAL WEIGHT LOSS Status: Acute (3) Headache Code(s): R51 - HEADACHE Status: Acute (4) Taste perversion Code(s): R43.2 - PARAGEUSIA Status: Acute (5) Dilated bile duct Code(s): K83.8 - OTHER SPECIFIED DISEASES OF BILIARY TRACT Status: Acute (6) Pancytopenia Code(s): D61.818 - OTHER PANCYTOPENIA Status: Acute (7) Hyponatremia Code(s): E87.1 - HYPO-OSMOLALITY AND HYPONATREMIA Status: Acute (8) Abnormal CT scan, chest Code(s): R93.89 - ABNORMAL FINDINGS ON DX IMAGING OF OTH BODY STRUCTURES Status: Acute (9) Pneumonia Code(s): J18.9 - PNEUMONIA, UNSPECIFIED ORGANISM Status: Acute (10) SLE (systemic lupus erythematosus) Code(s): M32.9 - SYSTEMIC LUPUS ERYTHEMATOSUS, UNSPECIFIED Status: Acute (11) Seizure disorder Code(s): G40.909 - EPILEPSY, UNSP, NOT INTRACTABLE, WITHOUT STATUS EPILEPTICUS Status: Acute - Plan Abnormal CT chest: Patient had an abnormal chest x-ray showing significant opacity in the right upper lobe which was very well delineated. CT of the chest confirms what appears to be some type of infiltrate with some central necrosis in the right upper lobe with several satellite areas with a small area of opacity in evidence of mild central necrosis of these areas. There is also a posterior right loculated small effusion. Etiology is unclear. Concerning for infectious etiology. Continuing isolation and awaiting sputum cultures, QuantiFERON. Cryptococcal antigen and HIV are negative. He is on empiric doxycycline for possible community-acquired pneumonia. Abdominal pain: Appears to be more related to a chest pain. Abnormal weight loss: Patient reports significant weight loss over the past several months. MRI of the abdomen is generally unremarkable. Systemic lupus erythematosus syndrome: There is some concern the patient may have a Dilantin induced lupus syndrome. However the patient appears to have been on Dilantin for a fairly long period of time. Is not impossible that he has just baseline lupus. According to him he has a very strong family history of it. Certainly could account for his pancytopenia. Counts appear to be generally stable at this point. He will likely need follow-up at [facility]. Headache: Negative MRI head. Pancytopenia: Reticulocyte count appears to be relatively low given the degree of anemia. Oncology is ordered some autoimmune studies. Taste perversion: Stable. Hyponatremia: Mild. However in the setting of the other symptoms needs to be watched closely. Seizure disorder: Going to discontinue the Dilantin and load him with Keppra IV today. That administered him on Keppra 500 mg p.o. twice daily. Disposition: This point the patient appears to be stable. They feel it is unlikely that the patient has TB and recommend removing isolation. I believe the patient can be discharged back to an infirmary where he can have subsequent follow-up at [facility]. He will likely need to be reevaluated off of the Dilantin. If evidence of lupus-like syndrome continues he may need treatment or further work-up including potential bone marrow biopsy.
[2020-04-04 13:56] LABS: #Lymphocytes 0.4 thou/uL (1.20-3.40); #Monocytes 0.1 thou/uL (0.11-0.59); #Neutrophils 1.9 thou/uL (1.40-6.50); %Eosinophils 1.3 % (0.0-10.0); %Lymphocytes 16.3 % (21.0-51.0); %Monocytes 5.5 % (0.0-10.0); %Neutrophils 76.9 % (42.0-75.0); Hemoglobin 8.7 g/dL (14.0-18.0); Mean Corpuscular HGB CONC 35.3 g/dL (32.0-36.0); Mean Corpuscular Hemoglobin 29.1 pg (27.0-31.0); Mean Corpuscular Volume 82.2 fL (78.0-98.0); Platelet Count 207 thou/uL (130-400); RBC Distribution Width 14.7 % (11.5-14.5); Red Blood Cell (RBC) Count 2.98 mill/uL (4.70-6.10); White Blood Cell (WBC) Count 2.5 thou/uL (4.8-10.8)
[2020-04-04] MEDS: levETIRAcetam 500 MG TAB PO SCH (20:35)
[2020-04-04] MEDS: Aripiprazole 15 MG TAB PO SCH (20:36)
[2020-04-05 05:54] LABS: #Lymphocytes 0.4 thou/uL (1.20-3.40); #Monocytes 0.1 thou/uL (0.11-0.59); #Neutrophils 1.7 thou/uL (1.40-6.50); %Eosinophils 1.4 % (0.0-10.0); %Lymphocytes 18.7 % (21.0-51.0); %Monocytes 5.4 % (0.0-10.0); %Neutrophils 74.5 % (42.0-75.0); Hemoglobin 8.6 g/dL (14.0-18.0); Mean Corpuscular HGB CONC 33.8 g/dL (32.0-36.0); Mean Corpuscular Hemoglobin 27.8 pg (27.0-31.0); Mean Corpuscular Volume 82.1 fL (78.0-98.0); Mean Platelet Volume 7.6 fL (7.4-10.4); Platelet Count 199 thou/uL (130-400); RBC Distribution Width 14.7 % (11.5-14.5); Red Blood Cell (RBC) Count 3.11 mill/uL (4.70-6.10); White Blood Cell (WBC) Count 2.3 thou/uL (4.8-10.8)
[2020-04-05] MEDS: Doxycycline 100 MG CAP PO SCH ×2 (08:41→20:05)
[2020-04-05] MEDS: levETIRAcetam 500 MG TAB PO SCH ×2 (08:41→20:05)
--- NOTE | 2020-04-05 15:20 | PDOC.HOSPP ---
- Subjective Encounter Date: 04/05/20 Subjective: Patient is feeling okay. Continues to have a bit of a headache behind his eyes. He tells me he initially declined the Keppra load because the milligrams were higher than the milligrams that he takes for his Dilantin and that worried him. He has been taking the p.o. Keppra since. - Objective Vital Signs & Weight: Vital Signs (12 hours) Temp Pulse Resp BP Pulse Ox 04/05/20 08:15 95 18 98 04/05/20 08:00 98 04/05/20 07:21 99.2 F 97 18 110/65 100 Weight Admit Weight 154 lb 3.2 oz Weight 154 lb 3.2 oz I&O: 04/04/20 04/05/20 04/06/20 06:59 06:59 06:59 Intake Total 600 Balance 600 Result Diagrams: 04/05/20 05:41 04/04/20 05:46 Additional Labs: Accuchecks 04/05/20 04:45 POC Glucose 92 Hospitalist ROS - Medication Medications: Active Medications Generic Name Dose Route Start Last Admin Trade Name Freq PRN Reason Stop Dose Admin Hydrocodone Bitart/Acetaminophen 1 tab 03/30/20 13:30 04/03/20 09:07 [place] 5/325 PO 1 tab Q4H PRN Administration Moderate Pain (4-6) Albuterol/Ipratropium 3 ml 04/01/20 13:00 04/05/20 13:13 Duoneb NEB Not Given [id number] KAVON Aripiprazole 15 mg 03/30/20 21:00 04/04/20 20:36 Abilify PO Not Given HS KAVON Doxycycline Hyclate 100 mg 04/01/20 21:00 04/05/20 08:41 Vibramycin PO 100 mg BID KAVON Administration Levetiracetam 500 mg 04/04/20 21:00 04/05/20 08:41 Keppra PO 500 mg BID KAVON Administration Pantoprazole Sodium 40 mg 04/02/20 09:00 04/05/20 08:41 Protonix PO 40 mg DAILY KAVON Administration Phenytoin Sodium 300 mg 04/04/20 21:00 04/04/20 20:35 Dilantin PO Not Given HS KAVON Sodium Chloride 10 ml 04/01/20 21:00 04/05/20 08:43 Flush - Normal Saline IVF 10 ml Q12HR KAVON Administration Sodium Chloride 10 ml 04/01/20 11:15 04/04/20 12:55 Flush - Normal Saline IVF 10 ml PRN PRN Administration Saline Flush - Exam General Appearance: NAD, awake alert Heart: RRR, no murmur, no gallops, no rubs, normal peripheral pulses Respiratory: CTAB, no wheezes, no rales, no ronchi, normal chest expansion, no tachypnea, normal percussion Gastrointestinal: soft, non-tender, non-distended, normal bowel sounds, no palpable masses, no hepatomegaly, no splenomegaly, no bruit Extremities: no cyanosis, no clubbing, no edema Skin: normal turgor, no lesions, no rashes Neurological: cranial nerve grossly intact, normal sensation to touch, no weakness, no focal deficits, no new deficit Musculoskeletal: normal tone, normal strength, no muscle wasting Psychiatric: normal affect, normal behavior, A&O x 3 Hosp A/P (1) Abdominal pain Code(s): R10.9 - UNSPECIFIED ABDOMINAL PAIN Status: Acute (2) Abnormal weight loss Code(s): R63.4 - ABNORMAL WEIGHT LOSS Status: Acute (3) Headache Code(s): R51 - HEADACHE Status: Acute (4) Taste perversion Code(s): R43.2 - PARAGEUSIA Status: Acute (5) Dilated bile duct Code(s): K83.8 - OTHER SPECIFIED DISEASES OF BILIARY TRACT Status: Acute (6) Pancytopenia Code(s): D61.818 - OTHER PANCYTOPENIA Status: Acute (7) Hyponatremia Code(s): E87.1 - HYPO-OSMOLALITY AND HYPONATREMIA Status: Acute (8) Abnormal CT scan, chest Code(s): R93.89 - ABNORMAL FINDINGS ON DX IMAGING OF OTH BODY STRUCTURES Status: Acute (9) Pneumonia Code(s): J18.9 - PNEUMONIA, UNSPECIFIED ORGANISM Status: Acute (10) SLE (systemic lupus erythematosus) Code(s): M32.9 - SYSTEMIC LUPUS ERYTHEMATOSUS, UNSPECIFIED Status: Acute (11) Seizure disorder Code(s): G40.909 - EPILEPSY, UNSP, NOT INTRACTABLE, WITHOUT STATUS EPILEPTICUS Status: Acute - Plan Abnormal CT chest: Patient had an abnormal chest x-ray showing significant opacity in the right upper lobe which was very well delineated. CT of the chest confirms what appears to be some type of infiltrate with some central necrosis in the right upper lobe with several satellite areas with a small area of opacity in evidence of mild central necrosis of these areas. There is also a posterior right loculated small effusion. Etiology is unclear. Concerning for infectious etiology. Continuing isolation and awaiting sputum AFB smear, QuantiFERON. The smear is pending in the lab now. QuantiFERON will take another few days. Cryptococcal antigen and HIV are negative. He is on empiric doxycycline for possible community-acquired pneumonia. Abdominal pain: Appears to be more related to a chest pain. Abnormal weight loss: Patient reports significant weight loss over the past several months. MRI of the abdomen is generally unremarkable. Systemic lupus erythematosus syndrome: There is some concern the patient may have a Dilantin induced lupus syndrome. However the patient appears to have been on Dilantin for a fairly long period of time. Is not impossible that he has just baseline lupus. According to him he has a very strong family history of it. Certainly could account for his pancytopenia. Counts appear to be generally stable at this point. He will likely need follow-up at [facility]. He has agreed to go off of the Dilantin. Will need to be off of that for period time and then he will need to be reevaluated. Headache: Negative MRI head. Pancytopenia: Reticulocyte count appears to be relatively low given the degree of anemia. Oncology is ordered some autoimmune studies. Taste perversion: Stable. Hyponatremia: Mild. However in the setting of the other symptoms needs to be watched closely. Seizure disorder: He refused the Keppra initially. The plan was to continue him back on Dilantin in that case. However, he was apparently amenable to taking the p.o. Keppra and that has been transitioned now. He will need to stay off of the Dilantin for several months and then have the lupus panel reevaluated. Disposition: There have been no infirmary beds for the patient. If he gets a negative sputum AFB smear he can come out of isolation at that time. He can return to general population if that occurs. He will need to stay off the Dilantin for several months and follow-up at [facility]. He will need to have the lupus reassessed after he has been off the Dilantin for a period of time. Will need his blood counts reassessed. He may need to have specific treatment for lupus if this does not resolve with cessation of the Dilantin.
--- NOTE | 2020-04-05 17:51 | PRG ---
DATE OF SERVICE: 04/05/2020 SUBJECTIVE: Feeling better. Less cough. Less sputum production. No more pain in the right anterior lower chest as he was having at the beginning. Eating better. No abdominal pain. Voiding without difficulty. He has not had a fever in a while. OBJECTIVE: VITAL SIGNS: Respirations 18 and O2 saturation 98 on room air. GENERAL: He is awake, alert, and oriented, appears in no distress. LUNGS: Clear. HEART: S1 and S2. Regular rate. ABDOMEN: Soft, not distended or tender. No ascites. No bladder distention. EXTREMITIES: Moves extremities equally. No joint inflammatory process noted. LABORATORY DATA: White cell count 2.3, hemoglobin 8.6, platelets 199, and 74% neutrophils. A chemistry with sodium 136, creatinine 0.86, and LDH 275. The first AFB negative smear. Cultures pending. ASSESSMENT AND DISCUSSION: 1. Longstanding epilepsy, on phenobarbital and now on Dilantin for many years. 2. Persistent headaches, cough, chronic with sputum production. 3. Weight loss. 4. Leukopenia. 5. Anemia. 6. Positive autoimmune antibody panel with a positive [id number] DNA, IgG titer 86 with a likely Dilantin induced systemic lupus erythematosus type of presentation. The 1st AFB was negative. We will discontinue isolation precautions and continue Keppra and continue to monitor his progress. Follow up chest x-ray. Follow up results of the final AFB test cultures. Job ID: [id number]
[2020-04-05] MEDS: Aripiprazole 15 MG TAB PO SCH (20:06)
[2020-04-06 07:25] VITALS: BP 108/66; TEMP 98.7
[2020-04-06] MEDS: levETIRAcetam 500 MG TAB PO SCH (08:26)
[2020-04-06] MEDS: Doxycycline 100 MG CAP PO SCH (09:25)
--- NOTE | 2020-04-06 15:02 | PDOC.HOSPP ---
- Subjective Encounter Date: 04/06/20 Subjective: NEUROLOGY PROGRESS NOTE Patient feels better. Tolerating Keppra well with no side-effects. No seizures during transition from dilantin. Patient refused follow up EEG. - Objective Vital Signs & Weight: Vital Signs (12 hours) Temp Pulse Resp BP Pulse Ox 04/06/20 08:00 99 04/06/20 07:23 98.7 F 84 16 108/66 99 Weight Admit Weight 154 lb 3.2 oz Weight 154 lb 3.2 oz I&O: 04/05/20 04/06/20 04/07/20 06:59 06:59 06:59 Intake Total 600 Balance 600 Result Diagrams: 04/05/20 05:41 04/04/20 05:46 Radiology Reviewed by me: Yes EKG Reviewed by me: Yes Hospitalist ROS - Review of Systems Constitutional: denies: fever, chills, sweats, weakness, malaise, other Eyes: denies: pain, vision change, conjunctivae inflammation, eyelid inflammation, redness, other Respiratory: denies: cough, dry, shortness of breath, hemoptysis, SOB with excertion, pleuritic pain, sputum, wheezing, other Cardiovascular: denies: chest pain, palpitations, orthopnea, paroxysmal noc. dyspnea, edema, light headedness, other Gastrointestinal: denies: nausea, vomiting, abdominal pain, diarrhea, constipation, melena, hematochezia, other Genitourinary: denies: dysuria, frequency, incontinence, hematuria, retention, other Musculoskeletal: denies: neck pain, shoulder pain, arm pain, back pain, hand pain, leg pain, foot pain, other Skin: denies: rash, lesions, jimmy, bruising, other Neurological: denies: weakness, numbness, incoordination, change in speech, confusion, seizures, other - Medication Medications: Active Medications Generic Name Dose Route Start Last Admin Trade Name Freq PRN Reason Stop Dose Admin Hydrocodone Bitart/Acetaminophen 1 tab 03/30/20 13:30 04/03/20 09:07 [place] 5/325 PO 1 tab Q4H PRN Administration Moderate Pain (4-6) Aripiprazole 15 mg 03/30/20 21:00 04/05/20 20:06 Abilify PO Not Given HS KAVON Doxycycline Hyclate 100 mg 04/01/20 21:00 04/06/20 09:25 Vibramycin PO 100 mg BID KAVON Administration Levetiracetam 500 mg 04/04/20 21:00 04/06/20 08:26 Keppra PO 500 mg BID KAVON Administration Pantoprazole Sodium 40 mg 04/02/20 09:00 04/06/20 08:26 Protonix PO 40 mg DAILY KAVON Administration Sodium Chloride 10 ml 04/01/20 21:00 04/06/20 08:27 Flush - Normal Saline IVF Not Given Q12HR KAVON Sodium Chloride 10 ml 04/01/20 11:15 04/04/20 12:55 Flush - Normal Saline IVF 10 ml PRN PRN Administration Saline Flush - Exam General Appearance: awake alert Eye: PERRL ENT: normocephalic atraumatic Neck: supple Heart: RRR Respiratory: CTAB Gastrointestinal: soft Extremities: no cyanosis Skin: normal turgor Neurological: cranial nerve grossly intact, normal sensation to touch, no weakness, no focal deficits, no new deficit Musculoskeletal: normal tone, normal strength, no muscle wasting Psychiatric: normal affect, normal behavior, A&O x 3 Hosp A/P (1) Seizure disorder Code(s): G40.909 - EPILEPSY, UNSP, NOT INTRACTABLE, WITHOUT STATUS EPILEPTICUS Status: Acute (2) Headache Code(s): R51 - HEADACHE Status: Acute (3) SLE (systemic lupus erythematosus) Code(s): M32.9 - SYSTEMIC LUPUS ERYTHEMATOSUS, UNSPECIFIED Status: Acute - Plan 34 year old consulted for lupus like symptoms secondary to dilantin . Long standing history of epilepsy on dilantin monotherapy. Dilantin discontinued and Keppra started which he tolerated well. Continue Keppra 500 mg twice daily. Ativan 2 mg IV for seizure greater than 2 minutes. Patient refused follow up EEG. Observe seizure preautions. Neurochecks every 4 hours. Continue medical management per primary team. Plan discussed with the patient.
[2020-04-07 07:13] LABS: QuantiFERON-TB Gold Plus Indeterminate (Negative)
== END 2020-04-06 19:30 | DRG 194 ==
LOC: ERS 01:44 → EEVIPCON 01:44 → OBSVTOIN 07:00 → T4-A 07:00 → ERS 07:00 → T4-A 04-01 14:22
PROVIDERS: ADMIT Internal Medicine; ATTEND Internal Medicine
PROC: 8E0ZXY6 Isolation (ICD-10-PCS; principal; 2020-03-30)
DX: J18.9 Pneumonia, unspecified organism (principal); D61.818 Other pancytopenia; E87.1 Hypo-osmolality and hyponatremia; J90 Pleural effusion, not elsewhere classified; G40.909 Epilepsy, unspecified, not intractable, without status epilepticus; K83.8 Other specified diseases of biliary tract; Z20.828 Contact with and (suspected) exposure to other viral communicable diseases; D64.9 Anemia, unspecified; D63.8 Anemia in other chronic diseases classified elsewhere; M32.9 Systemic lupus erythematosus, unspecified; R63.4 Abnormal weight loss; Z87.891 Personal history of nicotine dependence
CPT/HCPCS: 36415; 36416; 36600; 70553; 71045; 71260; 74181; 80048; 80053; 82533; 82607; 82728; 82746; 83520; 83540; 83550; 83615; 83690; 84550; 85025; 85046; 86038; 86200; 86225; 86480; 87070; 87116; 87205; 87206; 87385; 87389; 87635; 87899; 94640; 96360; 96361; 96372; A9579; G0378; J1953; J3420; J7620; Q9967; U0003